=== PATIENT | female | born 1990 ===

== ENCOUNTER 2019-11-18 14:17 | Emergency (ER) | payer OTHER ==
[~2019-11-18] VITALS: Ht 162.6 cm; Wt 54.5 kg
[2019-11-18 14:25] VITALS: BP 115/79; TEMP 97.9
[2019-11-18 15:14] LABS: COLLECTION METHOD CLEAN CATCH
[2019-11-18 15:22] LABS: PH 5 (5-8); SQUAMOUS EPITHELIAL None Seen /hpf; URINE APPEARANCE Clear; URINE BACTERIA None Seen /hpf; URINE BILIRUBIN Negative (NEGATIVE); URINE BLOOD 2+ (NEGATIVE); URINE COLOR Amber; URINE GLUCOSE Negative (NEGATIVE); URINE KETONE Negative (NEGATIVE); URINE LEUKOCYTE ESTERASE Negative (NEGATIVE); URINE NITRATE Positive (NEGATIVE); URINE PROTEIN(semi-quant) Negative (NEGATIVE); URINE RBC 0-2 /hpf; URINE UROBILINOGEN >=4.0 mg/dL (NEGATIVE)
[2019-11-18] MEDS ORDERED: CEPHALEXIN500 M1 PO (15:39)
[2019-11-18] MEDS ORDERED: NORCO 325 MG-51 TAB PO (15:54)
[2019-11-18 16:00] VITALS: PULSE 80
== END 2019-11-18 16:00 | disposition home or self-care (01) ==
LOC: COL.ER 14:17
PROVIDERS: Family Medicine
DX: N30.00 Acute cystitis without hematuria (principal)